=== PATIENT | female | born 1945 | race Caucasian/White ===

== ENCOUNTER 2022-06-05 13:51 | Outpatient (CLI) | payer MEDICARE, SELFPAY ==
--- NOTE | 2022-06-05 14:03 | XR_ITS ---
WS: [id number] DEXA (DUAL ENERGY X-RAY ABSORPTIOMETRY) Bone mineral density was performed using a Aptible machine. HISTORY: POST MENOPAUSAL COMPARISON: None available. Lumbar spine BMD (L1-L4): 0.959 g/cm2 T score: -1.8 Z score: 0.3 Total hip BMD: Left: 0.650 g/cm2. T score: -2.8 Z score: -0.7 Right: 0.688 g/cm2. T score: -2.5 Z score: -0.4 10 year probability of a major osteoporotic fracture is 20.8%. XR/XR DEXA axial skeleton* [id number] IMPRESSION: OSTEOPOROSIS based upon the WHO classification for females.
== END 2022-06-05 13:52 | disposition home or self-care (01) ==
PROVIDERS: PCP Physician Assistant; Visit Provider Physician Assistant
DX: Z78.0 Asymptomatic menopausal state (principal); M81.0 Age-related osteoporosis without current pathological fracture
CPT/HCPCS: 77080

== ENCOUNTER 2022-06-19 10:53 | Outpatient (CLI) | payer MEDICARE, SELFPAY ==
--- NOTE | 2022-06-19 11:08 | CT_ITS ---
WS: [id number] LDCT LUNG CANCER SCREENING TECHNIQUE: Noncontrast CT of the chest with coronal and sagittal reformatted images. CLINICAL INFORMATION: NICOTINE DEPENDENCE,CIGARETTES COMPARISON: None. DLP: 81.60 mGy.cm DIvol: Mean CTDIvol: 1.60 (mGy) All CT scans at [facility] use at least one of these dose optimization techniques: automat ed exposure control; mA and/or kV adjustment per patient size (includes targeted exams where dose is matched to clinical indication); or iterative reconstruction. FINDINGS: 5.3 mm millimeter noncalcified nodule LEFT lower lobe laterally. 6.1 wedge-shaped opacity R IGHT upper lobe along the fissure. Fibrotic opacities in the lung apices with scattered fibrosis in t he upper lobes bilaterally with associated bronchiectasis. Pleural thickening in the lung apices. Ectatic descending thoracic aorta measuring 3.0 CM. Normal caliber ascending thoracic aorta. Mild aor tic calcification. Coronary calcification. No mediastinal or hilar lymphadenopathy. Large esophageal hiatal hernia. Partial intrathoracic stomach. No axillary lymphadenopathy. Cholecystectomy clips. Adrenal glands are normal. Mild thoracic curve. Moderate thoracic kyphosis. CT/CT lung screening [id number] IMPRESSION:5.3 mm millimeter noncalcified nodule LEFT lower lobe laterally. 6.1 wedge-shaped opacity RIGHT upper lobe along the fissure. Recommend 3 month fol low-up LDCT. LUNG-RADS: 4A-Probably Suspicious FOLLOW UP: 3 Month LDCT
== END 2022-06-19 10:54 | disposition home or self-care (01) ==
PROVIDERS: PCP Physician Assistant; Visit Provider Physician Assistant
DX: Z12.2 Encounter for screening for malignant neoplasm of respiratory organs (principal); F17.210 Nicotine dependence, cigarettes, uncomplicated; R91.1 Solitary pulmonary nodule
CPT/HCPCS: 71271

== ENCOUNTER 2022-10-02 10:30 | Outpatient (CLI) | payer MEDICARE, SELFPAY ==
--- NOTE | 2022-10-02 10:45 | CT_ITS ---
WS: [id number] CT CHEST WITH INTRAVENOUS CONTRAST HISTORY: NODULE OF L LUNG TECHNIQUE: Contiguous 5 mm axial imaging performed on the thorax. Coronal and sagittal reformats are submitted. All CT scans at [facility] use at least one of these dose optimization techniques: automated exposure control; mA and/or kV adjustment per patient size (includes targeted exams where dose is matched to clinical indication); or iterative reconstruction. CONTRAST: Omnipaque 350; 100 mL IV. DLP: 175.59 mGy.cm COMPARISON: 06/19/2022 Lungs and central airway: Pulmonary hyperexpansion with emphysema. Biapical areas of pleural thickeni ng and scarring and fibrosis are stable. Mild pleural thickening along the fissures is also stable. N o pneumonia or increasing pulmonary nodule. Pleura: Normal. No pleural effusion. Heart and pericardium: Mild cardiomegaly with no pericardial effusion. Mediastinum and jaden: No adenopathy. Vessels: Mild ectasia and atherosclerosis aorta. No aneurysm. Pulmonary artery size is equal to the a gayle. Chest wall and lower neck: No soft tissue masses. Upper abdomen: Large hiatal hernia. Majority of the stomach is intrathoracic. Atherosclerosis continu es into the suprarenal aorta. Prior cholecystectomy. Osseous structures: Long RIGHT curvature thoracic spine. No fractures. CT/CT chest w con* [id number] IMPRESSION: 1. Chronic emphysema. 2. Pulmonary opacifications and pleural thickening noted bilaterally is stable . No increase in nodularity or new lesions. I favor these changes are all proba bryce related to fibrosis and scarring. Recommend additional [address] fol low-up. 3. No adenopathy. 4. Large portion of the stomach is intrathoracic.
[2022-10-02] MEDS: iohexol 350 mg/mL 500 mL Btl (per mL) IV (10:58)
[2022-10-02 11:57] LABS: Blood Urea Nitrogen 7 mg/dL (8-23)
== END 2022-10-02 10:31 | disposition home or self-care (01) ==
PROVIDERS: PCP Physician Assistant; Visit Provider Physician Assistant
DX: R91.1 Solitary pulmonary nodule (principal); J43.9 Emphysema, unspecified
CPT/HCPCS: 71260; 82565; 84520; Q9967

== ENCOUNTER 2022-12-28 10:45 | Outpatient (CLI) | payer MEDICARE, SELFPAY ==
--- NOTE | 2022-12-28 10:57 | CT_ITS ---
WS: [id number] CT chest wo con [id number] HISTORY: PULMONARY NODULE TECHNIQUE: Axial imaging performed through the thorax. Coronal and sagittal reformats are submitted. All CT scans at [facility] use at least one of these dose optimization techniques: automated exposure control; mA and/or kV adjustment per patient size (includes targeted exams where dose is mat ched to clinical indication); or iterative reconstruction. CONTRAST: None DLP: 156.85 mGy.cm COMPARISON: 10/02/2022, 06/19/2022 Lungs and central airway: Pulmonary hyperinflation with paraseptal and centrilobular emphysema. Bilat eral apical areas of fibrosis and scarring. Irregular slightly spiculated opacifications in the RIGHT upper lobe. Similar to 10/02/2022 and 06/19/2022. 5 mm noncalcified nodule superior segment LEFT lower lobe is unchanged. No new or progression of pulmonary opacifications. Pleura: Normal. No pleural effusion. Heart and pericardium: Normal size heart with no pericardial effusion. Heavy calcifications noted jen ng the mitral annular valve plane. Mediastinum and jaden: No mediastinum or hilar adenopathy. Vessels: Mild atherosclerotic plaque aorta. Pulmonary artery is prominent. Chest wall and lower neck: No soft tissue masses. Upper abdomen: Majority the stomach is intrathoracic abutting the posterior RIGHT heart. No adrenal m ass. Prior cholecystectomy. Osseous structures: Increase in thoracic kyphosis with scoliosis. CT/CT chest wo con [id number] IMPRESSION: 1. Stable biapical pleural thickening, scarring and slightly spiculated opacif ications in the RIGHT upper lobe and LEFT lower lobe nodule. No interval change since 06/19/2022. Recommend continued serial follow-up. Follow-up chest CT in 6 months. 2. Centrilobular and paraseptal emphysema. 3. Majority of the stomach is intrathoracic. 4. Prior cholecystectomy.
== END 2022-12-28 10:46 | disposition home or self-care (01) ==
PROVIDERS: PCP Physician Assistant; Visit Provider Physician Assistant
DX: R91.1 Solitary pulmonary nodule (principal); R91.8 Other nonspecific abnormal finding of lung field; J43.2 Centrilobular emphysema; Z90.49 Acquired absence of other specified parts of digestive tract
CPT/HCPCS: 71250

== ENCOUNTER 2023-06-29 12:44 | Outpatient (CLI) | payer MEDICARE, SELFPAY ==
--- NOTE | 2023-06-29 12:55 | XR_ITS ---
WS: [id number] SCREENING DEXA SCAN [employer] CLINICAL INFORMATION: POSTMENOPAUSAL COMPARISON: 2021 FINDINGS: The L1-L4 bone mineral density measures 0.979 g/cm2. This corresponds to a T score score of -1.7 and Z score of 0.5. Left femoral neck bone mineral density measures 0.623 g/cm2. This corresponds to a T score of -3.1 an d Z score of -0.9. Right femoral neck bone mineral density measures 0.680 g/cm2. This corresponds to a T score -2.6of an d Z score of -0.4. Mean femoral neck bone mineral density measures 0.651 g/cm2. This corresponds to a T score of -2.8 an d Z score of -0.7. IMPRESSION: Osteopenia lumbar spine. Osteoporosis femoral necks. Patient's FRAX calculated 10 year probability for major osteoporotic fracture is 33.9% and osteoporot ic hip fracture is 17.7%.
== END 2023-06-29 12:45 | disposition home or self-care (01) ==
LOC: RAD 12:45
PROVIDERS: PCP Physician Assistant; Visit Provider Family Medicine
DX: Z78.0 Asymptomatic menopausal state (principal); M85.89 Other specified disorders of bone density and structure, multiple sites
CPT/HCPCS: 77080

== ENCOUNTER 2023-07-28 14:09 | Outpatient (CLI) | payer MEDICARE, SELFPAY ==
--- NOTE | 2023-07-28 14:14 | CT_ITS ---
WS: [id number] CT chest wo con [id number] HISTORY: MULTIPLE LUNG NODULES TECHNIQUE: Axial imaging performed through the thorax. Coronal and sagittal reformats are submitted. All CT scans at [facility] use at least one of these dose optimization techniques: automated exposure control; mA and/or kV adjustment per patient size (includes targeted exams where dose is mat ched to clinical indication); or iterative reconstruction. CONTRAST: None DLP: 214.94 mGy.cm COMPARISON: 12/28/2022, 06/19/2022 Lungs and central airway: Moderate biapical pleural thickening and scarring. Scattered bilateral uppe r lobe opacifications. There is irregular opacifications of some of these are subsolid. There are are as of consolidation in the nodules are similar to the prior study. 5 mm nodule in the superior segmen t LEFT lower lobe is unchanged. Wedge-shaped opacification RIGHT upper lobe is also unchanged. Pleura: Normal. No pleural effusion. Heart and pericardium: Normal size heart with scattered coronary artery calcifications. Mediastinum and jaden: No mediastinum or hilar adenopathy. Vessels: Ectatic thoracic aorta. Pulmonary artery is enlarged. Chest wall and lower neck: No soft tissue masses. Upper abdomen: Large hiatal hernia. No adrenal mass. Prior cholecystectomy. Osseous structures: Increase in thoracic kyphosis and scoliosis. IMPRESSION: 1. Bilateral pulmonary nodules in the scattered pulmonary opacifications and fibrosis are stable sin ce 06/19/2022. Consider additional 12-month follow-up CT to demonstrate long-term stability. 2. No adenopathy. 3. Mild pulmonary hypertension. 4. Large hiatal hernia.
== END 2023-07-28 14:10 | disposition home or self-care (01) ==
LOC: RAD 14:10
PROVIDERS: PCP Physician Assistant; Visit Provider Family Medicine
DX: R91.8 Other nonspecific abnormal finding of lung field (principal); K44.9 Diaphragmatic hernia without obstruction or gangrene; I27.20 Pulmonary hypertension, unspecified
CPT/HCPCS: 71250

== ENCOUNTER 2023-10-18 07:50 | Outpatient (CLI) | payer MEDICARE, SELFPAY ==
--- NOTE | 2023-10-18 08:00 | USCV_ITS ---
Saundra Lawson Age: 78 Gender: F : 1945 Exam Date: 10/18/2023 08:13 Ordering Phys: Corrine Patton Technologist: BISI Exam Location: [facility] [place] Indication: CP BP: 130 / 90 HR: 196 Rhythm: Other Technical Quality: Good MEASUREMENTS (Male / Female) Normal Values 2D ECHO LV Diastolic Diameter PLAX 3.4 cm 4.2 - 5.9 / 3.9 - 5.3 cm IVS Diastolic Thickness 1.0 cm 0.6 - 1.0 / 0.6 - 0.9 cm IVS Systolic Thickness 1.4 cm LVPW Diastolic Thickness 1.1 cm 0.6 - 1.0 / 0.6 - 0.9 cm LVPW Systolic Thickness 1.2 cm LVOT Diameter 2.0 cm LV Ejection Fraction 2D Teich 57.2 % LV Ejection Fraction MOD 2C 60.0 % LV Ejection Fraction 2C AL 62.4 % LA Diameter 2.2 cm RA Systolic Volume 4C AL 29.6 ml RA Systolic Volume 4C MOD 29.2 ml Aorta at Sinotubular Diameter 2.7 cm IVC Diameter 1.2 cm M-MODE LA Ao Ratio MM 1.0 AV Cusp Separation MM 2.0 cm DOPPLER AV Peak Velocity 124.0 cm/s LVOT Peak Velocity 90.0 cm/s AV Area Cont Eq vti 2.3 cm squared AV Area Cont Eq pk 2.4 cm squared MV Peak Velocity 143.6 cm/s MV Area PHT 3.8 cm squared Mitral E to A Ratio 0.8 TV Peak Velocity 91.3 cm/s TV Peak E Velocity 49.0 cm/s PV Peak Velocity 104.0 cm/s FINDINGS Left Ventricle Left ventricle is normal in size. LV systolic function is normal with EF of 55 to 60%. No regional wall motion abnormalities are seen. Grade 1 diastolic dysfunction Right Ventricle Normal in size and function Right Atrium Normal in size Left Atrium Normal in size Mitral Valve Structurally normal mitral valve. Mild mitral regurgitation. Aortic Valve Structurally normal aortic valve. No significant stenosis or regurgitation. Tricuspid Valve Mild tricuspid regurgitation. Insufficient TR jet to calculate RVSP Pulmonic Valve Trace pulmonic regurgitation. Pericardium Normal Aorta Normal in size IVC Appears to be normal CONCLUSIONS LV systolic function is normal with EF of 55-60% Grade 1 diastolic dysfunction Mild mitral regurgitation Mild tricuspid regurgitation No comparison studies are available. Mickey Sheppard MD (Electronically Signed) Final Date: 22 October 2023 10:11 S
== END 2023-10-18 07:51 | disposition home or self-care (01) ==
LOC: RAD 07:52
PROVIDERS: PCP Physician Assistant; Visit Provider Physician Assistant
DX: R07.9 Chest pain, unspecified (principal); I08.1 Rheumatic disorders of both mitral and tricuspid valves
CPT/HCPCS: 93306

== ENCOUNTER 2023-11-02 10:16 | Outpatient (CLI) | payer MEDICARE, SELFPAY ==
--- NOTE | 2023-11-02 | ECG_ITS ---
[facility] Test Date: 2023-11-02 Pat Name: Saundra Lawson Department: Room: Gender: Female Position Classification Manager: : 1945 Requested By: Corrine Nguyen Order Number: [id number] Reading MD: Interpretive Statements Lung unchanged pre/post procedure; Intraprocedure shortess of breath; Symptoms resoled by discharge [email or web address]
--- NOTE | 2023-11-02 10:29 | NMCV_ITS ---
NM annemarie perf SPECT r/s* [id number] Saundra Lawson Age: 78 Gender: F : 1945 Exam Date: 11/02/2023 11:21 Ordering Phys: Corrine Patton Technologist: TE Martin Exam Location: [facility] Indications: CHEST PAIN STRESS TEST Please see separate stress test report in [facility] for full findings IMAGE PROTOCOL Rest/Stress 1 Lexiscan Day Radiopharmaceutical Dose (mCi) Administration Site Administered by Rest: Tc-99m 10.6 IV TE Michele Sestamibi Stress:Tc-99m 32.4 IV TE Michele Sestamibi Rest: 02-Nov-2023 60 Discovery 630 Stress: 02-Nov-2023 30 Discovery 630 0.4mg Lexiscan. Supine position only as patient was unable to lay prone. SPECT RESULTS Technical Quality: Excellent Raw Data Analysis: Normal Image Corrections: No attenuation or motion correction applied Summed Stress Score: 10 Summed Rest Score: 13 Summed Difference Score: 1 PERFUSION FINDINGS Small to moderate area of moderate to severely decreased tracer uptake was noted in the mid and apical inferior, mid inferolateral, apical lateral and LV apex. Subtle area of reversibility was noted in the mid inferior region with polar plot. However with the SPECT imaging, no significant reversibility was noted FUNCTIONAL RESULTS (calculated via Gated SPECT) Stress Image LV EF (%): 75 Stress EDV (mL):59 TID: 1.11 Stress ESV (mL):15 FUNCTIONAL FINDINGS: Segmental wall motion analysis revealing no gross wall motion abnormalities IMPRESSIONS 1. Myocardial perfusion imaging revealing small to moderate area of moderate to severely decreased tracer uptake, involving the mid and apical inferior, mid inferolateral, apical lateral and LV apex with a subtle area of inconsistent reversibility suggesting myocardial scarring with a subtle area of possible infarction ischemia. 2. Normal LV ejection fraction of 75% 3. LV wall motion analysis revealing no gross wall motion abnormalities. 4. Normal LV volume Possibly no significant coronary ischemia, based on the above findings. No similar previous studies are available for comparison Dr Cristian Tavares MD [facility] (Electronically Signed) Final Date: 02 November 2023 16:40 S
[2023-11-02 10:37] VITALS: BMI 21.7
[2023-11-02] MEDS: regadenoson 0.4 Mg/5 ml Syringe 0.400000000000000022 MG IVP (11:59)
[2023-11-02 12:16] VITALS: BP 120/64; PULSE 98
== END 2023-11-02 10:17 | disposition home or self-care (01) ==
PROVIDERS: PCP Physician Assistant; Visit Provider Physician Assistant
DX: R07.9 Chest pain, unspecified (principal)
CPT/HCPCS: 36415; 78452; 93017; 96374; A9500; J2785

== ENCOUNTER 2024-08-09 07:52 | Outpatient (CLI) | payer MEDICARE, SELFPAY ==
--- NOTE | 2024-08-09 08:02 | CT_ITS ---
WS: [id number] LDCT LUNG CANCER SCREENING HISTORY: NICOTINE DEPENDENCE TECHNIQUE: Axial imaging performed from the apices to 1 cm below the costophrenic angles. Coronal and sagittal reformats are submitted with axial MIP series. All CT scans at [facility] use at least one of these dose optimization techniques: automated exposure control; mA and/or kV adjustment per patient size (includes targeted exams where dose is matched to clinical indication); or iterativ e reconstruction. DLP: 47.89 mGy.cm DIvol: Mean CTDIvol: 0.70 (mGy) COMPARISON: 07/28/2023, 12/28/2022, 06/19/2022 Diagnostic quality: Satisfactory Lungs: Paraseptal and centrilobular emphysema. Advanced fibrotic changes at the lung apices. Multilob ar pulmonary nodules. Stable 5 mm nodule superior segment LEFT lower lobe. Bilateral pleural tagging and peripheral pulmonary nodules are stable. No new mass or nodule is identified or increasing size. Heart: Normal size heart with no pericardial effusion.. Other findings: Atherosclerosis aorta. Mildly dilated pulmonary artery. Small mediastinal and hilar l ymph nodes. Hilar regions are difficult to evaluate for adenopathy without IV contrast. Large hiatal hernia. Prior cholecystectomy. CT/CT lung screening [id number] IMPRESSION: LUNG-RADS: 2-Benign Appearance or Behavior FOLLOW UP: 12 Month: Continue annual screening with LDCT OTHER FINDINGS (S MODIFIER): None.
--- NOTE | 2024-08-09 08:02 | USCV_ITS ---
Saundra Lawson Age: 78 Gender: F : 1945 Exam Date: 08/09/2024 08:22 Ordering Phys: Corrine Patton Technologist: CT Exam Location: [facility] [place]_ Indication: PROCEDURES: Venous duplex imaging was performed in only the right lower extremity. On the right side, the common femoral, superficial femoral, profunda femoral, popliteal, posterior tibial, greater saphenous veins and the peroneal trunk were identified and interrogated in the standard fashion. FINDINGS: Normal 2-D Doppler and augmentation and compressibility throughout the lower extremity venous structures. Additional imaging through the proximal calf veins also reveals no thrombus. Limited evaluation of the greater saphenous vein is patent with no thrombus. CONCLUSIONS No DVT right lower extremity. Dr. Alanna Blackburn DO (Electronically Signed) Final Date: 09 August 2024 11:55 S
== END 2024-08-09 07:53 | disposition home or self-care (01) ==
LOC: RAD 07:55
PROVIDERS: PCP Physician Assistant; Visit Provider Physician Assistant
DX: Z12.2 Encounter for screening for malignant neoplasm of respiratory organs (principal); F17.210 Nicotine dependence, cigarettes, uncomplicated; M79.661 Pain in right lower leg; J43.2 Centrilobular emphysema; J43.8 Other emphysema; R91.8 Other nonspecific abnormal finding of lung field; I70.0 Atherosclerosis of aorta; I72.8 Aneurysm of other specified arteries; K44.9 Diaphragmatic hernia without obstruction or gangrene; Z90.49 Acquired absence of other specified parts of digestive tract
CPT/HCPCS: 71271; 93971

== ENCOUNTER 2024-10-03 13:18 | Outpatient (CLI) | payer MEDICARE, SELFPAY ==
--- NOTE | 2024-10-03 13:26 | USR_ITS ---
PROCEDURE INFORMATION: Exam: US Duplex Right Lower Extremity Arteries Or Arterial Bypass Grafts Exam date and time: 10/03/2024 2:02 PM Age: 78 years old Clinical indication: Pain; Leg, lower; Right; Additional info: Pvd TECHNIQUE: Imaging protocol: Right Real-time duplex scan of the arteries or arterial bypass grafts of the right lower extremity with 2-D gonzalez scale, color Doppler flow and spectral waveform analysis. Images documented and saved. COMPARISON: No relevant prior studies available. FINDINGS: Right common iliac artery: No occlusion or significant stenosis. Normal waveform. Right common femoral artery: No occlusion or significant stenosis. Normal waveform. Right superficial femoral artery: No occlusion or significant stenosis. Normal waveform. Right popliteal artery: No occlusion or significant stenosis. Normal waveform. Right calf/foot arteries: No occlusion or significant stenosis in the visualized arteries. Normal waveforms. Dorsalis pedis artery is patent. Ankle-brachial index is 1.0 US/[place] [id number] IMPRESSION: No right lower extremity arterial stenosis seen
== END 2024-10-03 13:19 | disposition home or self-care (01) ==
PROVIDERS: PCP Physician Assistant; Visit Provider Physician Assistant
DX: I73.9 Peripheral vascular disease, unspecified (principal)
CPT/HCPCS: 93926